=== PATIENT | male | born 1980 | race Asian ===

== ENCOUNTER 2016-11-20 07:16 | Emergency (ER) | payer OTHER ==
[~2016-11-20] VITALS: Ht 165.1 cm; Wt 72.7 kg
[2016-11-20 07:20] VITALS: BP 211/156; PULSE 104; RESP 16; O2SAT 100
--- NOTE | 2016-11-20 07:53 | ED.REPORT ---
HPI-Chest Pain 40 and Over Date of Service Nov 20, 2016 ED Provider: Cristhian Brown MD History of Present Illness: OCC Pt is an otherwise healthy 35 year old male who presents to the ED complaining of left rib pain onset this morning. He c/o associated SOB secondary to the pain. Pt reports anxiety associated with visiting hospitals. He denies fever, chills, lower extremity swelling, and any other symptoms. His pain is exacerbated with moving, sneezing, coughing, and breathing. Pt reports that he coughed and felt something pop followed by his left rib pain. Nursing Notes Stated Complaint: LEFT RIB PIAN Chief Complaint: Chest Pain-Non Cardiac Nature Nursing Notes Reviewed: Yes ([employer], [employer] not reconciled) Allergies: Coded Allergies: No Known Allergies (Unverified , 11/20/16) Scheduled PRN Cyclobenzaprine (Cyclobenzaprine) 10 Mg Tablet 10 MG PO BID PRN PRN Spasm oxyCODONE-Acetaminophen 5-325 mg (oxyCODONE-Acetaminophen 5-325 mg) 1 Each Tablet 1-2 TAB PO Q6H PRN PRN For Pain General Time Seen by MD: 07:50 Chief Complaint Other (Left rib pain) Hx Obtained From: Patient Arrived By: Walk-in Sudden in Onset?: Yes Onset Occurred: Just prior to arrival Symptom Duration: Since onset Location: : Chest left Quality: Painful Radiation: : Does not radiate Severity: Current: Moderate Severity: Maximum: Moderate Recent Healthcare: No recent doctor visit, No recent hospitalization Similar Sx Previous: No Past Medical History Past Medical History Healthy Past Surgical History None reported Smoking History Current Every Day Smoker Social History Lives in [place] Occupation Works in [employer] Status Independent Review of Systems Constitutional: Denies: Chills, Fever Cardiovascular: Reports: Chest pain Musculoskeletal: Denies: Extremity swelling Psychiatric: Reports: Anxiety (secondary to hospital visit) Complete sys rev & neg: except as marked. Physical Exam Initial Vital Signs Vital Signs (First) Date Time Temp Pulse Resp B/P Pulse Ox O2 Delivery O2 Flow Rate FiO2 11/20/16 07:20 36.1 104 16 211/156 100 Room Air Initial VS: Reviewed, Vital signs normal, Vital signs abnormal Head / Eyes: Atraumatic, Normocephalic Neck: Supple, Full range of motion Extremities: Vascular intact, Neuro intact Skin: Warm, Dry, No cyanosis Neurologic: Alert, Oriented, Nonfocal Psychiatric: Mood/affect normal, Behavior normal General/Constitutional: Awake, Alert Well, fit male. Respiratory / Chest: Atraumatic, Breath sounds NL, Breath sounds = bilat Moderate pain. Tender on left chest well. Cardiovascular: Heart rate NL, Regular rhythm, Heart sounds NL Not tachycardic Abdomen: Atraumatic, Soft, Non-tender Interpretation & Diagnostics X-Ray Chest Interpretation Chest Xray Interpretation: Negative View: Portable, 1 view Interpretation / Wet Read by: Wet read ED physician Re-Eval/Medical Decision Med Decision/Clinical Course This is a 35-year-old male presents complaining with sudden onset left-sided chest pain after sneezing and coughing. Suddenly felt a pull in his left chest and had severe pain with this. He has no previous history of pneumothorax or major disease. He does have a history of being told that he is high blood pressure, but is never followed up with the PCP. He lives up in [place]. On arrival is in moderate pain holding his left chest. He is also severely hypertensive. However his lungs are clear, he is not to get fingertips, is mild chest wall tenderness with no crepitus. And a chest x-ray PA lateral was negative for pneumothorax, or visible rib fracture. He has localized chest wall tenderness. His clinical history is indicative of a, there are no features to indicate acute coronary syndrome, pulmonary embolus. His mechanical discomfort with twisting turning moving or pressing worsening of the pain. He is visibly requested chest wall wrap and this was provided. However had a long discussion with him regarding hypertension and the need for follow-up , given the severity of his hypertension here-to which he thinks is secondary to his pain and not likely emergency-is such that I have indicated he is at risk for going on developed stroke, renal failure, heart disease, etc. and that it is really clinically importantly obtaining outpatient follow-up for this. He therefore agrees. Follow-up the PCP in [place], but again a referral to a local provider should be need one. He is being discharged with some ibuprofen and hydrocodone for pain control. He is discharged in improved condition. Routine and return precautions reviewed. Source of Hx: Old records Time of Eval: 08:00 Re-Evaluation/Progress Note: Informed pt of plan for discharge. Pt understands and agrees with plan for discharge. F/U instructions and RTER warnings given. All questions addressed. Differential Diagnosis: Positive: Chest pain, acute, Musculoskeletal pain, Negative: Acute coronary syndrome, Acute myocardial infarct, Dysrhythmia, Gun shot wound chest, Pneumomediastinum, Pneumonia, Pneumothorax, Pulmonary edema, Pulmonary embolism, Rib fracture (no displaced fx), Stab wound chest Counseled Regarding: Diagnosis, Need for follow-up, When/why to return to ED Discharge & Departure Primary Impression: Chest wall pain Additional Impression: HTN (hypertension) Hypertension type: unspecified secondary hypertension Qualified Code: I15.9 - Secondary hypertension, unspecified Disposition: Home Discharge Condition All VS Reviewed: Yes Condition: Stable Additional Instructions: 1. No displaced rib fracture or lung injury was appreciated on Xray. 2. Use the LYRIC wrap if comfortable (OK to discontinue if not helping) 3. Activities as tolerated. 4. Take ibuprofen 400mg three times a day for pain if needed. 5. For more severe pain, take hydrocodone/APAP 5/325 1-2 tabs up to every 6 hours. NOTE: This medication contains a narcotic and causes drowsiness. No driving for at least 4 hours after taking. Use if needed. 6. Your blood pressure was very elevated here, and you do need to have it rechecked - and as discussed there is a high liklihood that you may need medications. Left untreated, over time high blood pressures of this type can result in stroke, heart problems, kidney failure. Do need to establish a primary care physician, and have it rechecked and followed. 7. If you want a local primary care physician here in [place] and follow- up with Marisa Peterson. Call for an appointment. 8. Return if new or worsening symptoms. Referrals: Marisa Peterson MD Attestation Portions of this note were transcribed by Ssui Pelletier. I, Dr. Brown personally performed the history, physical exam and medical decision-making; I reviewed and confirmed the accuracy of the information in the transcribed note. Signed by: Sabrina Lawrence, 11/20/16. copies to: Marisa Peterson MD, Matthew F MD Nov 20, 2016 07:53 Susi Mcghee Nov 20, 2016 08:04
[2016-11-20 08:02] VITALS: BP 184/135; PULSE 98; RESP 13; O2SAT 100
[2016-11-20] MEDS ORDERED: CYCL10TA9 PO (08:09)
[2016-11-20] MEDS ORDERED: OXYC1TAB24 PO (08:09)
--- NOTE | 2016-11-20 08:54 | DRSVH ---
PROCEDURE: X-RAY CHEST, TWO VIEWS ([id number]) INDICATIONS: left side CP hard to take deep breath TECHNIQUE: 2 views of the chest were acquired. COMPARISON: None. FINDINGS: Surgical changes and devices: None. Lungs and pleura: No pleural effusions or pneumothorax. Lungs are clear. Mediastinum: Mediastinal contours are normal. Heart size is normal. Bones and chest wall: No suspicious bony abnormalities. Soft tissues appear unremarkable. IMPRESSION: No acute cardiopulmonary disease. Dictated by: Brennen Jaime [facility] Interpreted: Durga Segundo MD on 11/20/2016 at 8:36 Approved by: Durga Segundo M.D. on 11/20/2016 at 8:52
[2016-11-20 09:07] VITALS: BP 184/135; PULSE 98; RESP 13; O2SAT 100
== END 2016-11-20 09:08 | disposition home or self-care (01) ==
LOC: SED 07:16
DX: R07.89 Other chest pain (principal); I15.9 Secondary hypertension, unspecified; R06.02 Shortness of breath; F17.200 Nicotine dependence, unspecified, uncomplicated